=== PATIENT | female | born 1965 | race Hispanic/Latino ===

== ENCOUNTER 2019-04-11 13:22 | Emergency (ER) | payer BC ==
--- NOTE | 2019-04-11 15:07 | Event Note ---
ED Screening Note Date of service: 04/11/19 Time: 15:03 ED Screening Note: This is a 53 y.o. F. that presents to the ER with laceration to distal right 2nd finger. PMH of DM, TIA, HTN, HLD, hypothyroidism Currently on blood thinners. Tetanus UTD This initial assessment/diagnostic orders/clinical plan/treatment(s) is/are subject to change based on patients health status, clinical progression and re- assessment by fellow clinical providers in the ED. Further treatment and workup at subsequent clinical providers discretion. Patient/guardian urged not to elope from the ED as their condition may be serious if not clinically assessed and managed. Initial orders include: XR right fingers
--- NOTE | 2019-04-11 15:51 | XRay Report ---
Right hand-3 views INDICATION: laceration distal 2nd finger. COMPARISON: None. IMPRESSION: There is a soft tissue laceration involving the tip of the index finger with considerabl e soft tissue irregularity and swelling. No acute fracture identified. Mild degenerative changes thr oughout the hand as well. Signer Name: Ascencion Diehl MD Signed: 04/11/2019 3:46 PM Workstation Name: [id number]
[2019-04-11 16:43] VITALS: BP 165/65
[2019-04-11] MEDS ORDERED: HYDROcodone/ACETAMINOPHEN 5-325 MG TAB PO ONE (16:47)
[2019-04-11] MEDS ORDERED: TETANUS,DIPH,PERTUSS(ACELL) VACCINE 0.5 ML SYRINGE IM ONE (16:47)
--- NOTE | 2019-04-11 16:54 | Emergency Department Report ---
ED Laceration HPI - HPI Chief Complaint: Wound/Laceration Stated Complaint: LACERATED RT FINGER Time Seen by Provider: 04/11/19 15:02 Location: Upper Extremity Severity: moderate Tetanus Status: Up to Date Laceration Symptoms: Yes Pain, No Foreign Body Sensation, No Numbness, No Weakness Other History: 53-year-old female presents with a laceration injury to the index finger that happened earlier today while they were at a restaurant. Patient states she accidentally sat on the stool and had a finger and on during the stool and sometimes scraped her finger. ED Review of Systems ROS: Stated complaint: LACERATED RT FINGER Other details as noted in HPI Comment: All other systems reviewed and negative ED Past Medical Hx - Past Medical History Previous Medical History?: Yes Hx Hypertension: Yes Hx Diabetes: Yes Hx Asthma: Yes Additional medical history: Hyperthyroidism - Surgical History Past Surgical History?: Yes Additional Surgical History: sinus surgery - Social History Smoking Status: Never Smoker Substance Use Type: None - Medications Home Medications: Home Medications Medication Instructions Recorded Confirmed Last Taken Type Clindamycin [Clindamycin CAP] 300 mg PO Q8H #21 cap 04/11/19 Unknown Rx Ibuprofen [Motrin] 800 mg PO Q8HR #20 tablet 04/11/19 Unknown Rx Laceration Physical Exam - Exam General: Vital signs noted. No distress. Alert and acting appropriately. Laceration Location: Upper Extremity Laceration Exam: Yes Normal Distal CMS, No Foreign Body, No Exposed Tendon, Vessel, or Nerve, No Tendon Injury ED Course Vital Signs 04/11/19 04/11/19 15:02 16:34 Temperature 98.8 F 97.5 F L Pulse Rate 86 77 Respiratory 18 17 Rate Blood Pressure 146/84 165/65 O2 Sat by Pulse 97 100 Oximetry ED Medical Decision Making - Radiology Data Radiology results: report reviewed, image reviewed Attending Dr: Ordering Physician: GIUSEPPE COLBY Date of Service: 04/11/19 Procedure(s): XR finger(s) 2+V RT Accession Number(s): [id number] cc: GIUSEPPE COLBY Fluoro Time In Minutes: Right hand-3 views INDICATION: laceration distal 2nd finger. COMPARISON: None. IMPRESSION: There is a soft tissue laceration involving the tip of the index finger with considerable soft tissue irregularity and swelling. No acute fracture identified. Mild degenerative changes throughout the hand as well. Signer Name: Ascencion Diehl MD Signed: 04/11/2019 3:46 PM Workstation Name: [id number] Transcribed By: JAMES Dictated By: Ascencion Diehl MD Electronically Authenticated By: Ascencion Diehl MD Signed Date/Time: 04/11/19 1546 - Medical Decision Making 53-year-old female presents with laceration to the index finger with nail bed involvement The 1cm laceration wound was prepped and draped in sterile fashion. Anesthesia was achieved with 2mL of 1% lidocaine. The wound was irrigated with 200cc NS and explored. There were no foreign bodies The wound was reapproximated in 1 layer with 2 continuous sutures suing with three 4-0 Vicryl absorbable sutures in the dermis There was excellent reapproximation of the wound edges. The patient tolerated the procedure without complication The patient follow up with her primary care physician in 3-5 days Schools nor need for Critical care attestation.: If time is entered above; I have spent that time in minutes in the direct care of this critically ill patient, excluding procedure time. ED Disposition Clinical Impression: Laceration of index finger with damage to nail Disposition: DC-01 TO HOME OR SELFCARE Is pt being admited?: No Does the pt Need Aspirin: No Condition: Stable Instructions: Suture Care (ED), Absorbable Suture Care (ED) Additional Instructions: Make sure to follow up with the primary care physician as discussed. Take all your medications as you've been prescribed. If you have any worsening symptoms or develop new symptoms please return to ED immediately. Prescriptions: Clindamycin [Clindamycin CAP] 300 mg PO Q8H #21 cap Ibuprofen [Motrin] 800 mg PO Q8HR #20 tablet Referrals: [facility] [Provider Group] - 3-5 Days Forms: Accompanied Note, Work/School Release Form(ED)
[2019-04-11] MEDS ORDERED: LIDOCAINE-MPF (1%) 10 MG/1 ML VIAL 5 ML ONE (17:20)
== END 2019-04-11 18:28 | disposition home or self-care (01) ==
LOC: ED 13:22
DX: S61.210A Laceration without foreign body of right index finger without damage to nail, initial encounter (principal); I10 Essential (primary) hypertension; E11.9 Type 2 diabetes mellitus without complications; J45.909 Unspecified asthma, uncomplicated; Z88.5 Allergy status to narcotic agent; W26.8XXA Contact with other sharp object(s), not elsewhere classified, initial encounter; Y93.89 Activity, other specified; Y92.89 Other specified places as the place of occurrence of the external cause; Y99.8 Other external cause status
CPT/HCPCS: 90471; 90715